=== PATIENT | female | born 1980 ===

== ENCOUNTER 2017-07-05 19:00 | Emergency (ER) | payer OTHER ==
[2017-07-05] MEDS ORDERED: ONDANSETRON HCL 4 MG/2 ML SOL IM ONE (19:37)
[2017-07-05] MEDS ORDERED: LORAZEPAM 2 MG/ML SOL IM ONE (19:37)
[2017-07-05] MEDS ORDERED: ONDANSETRON 4 MG ODT BU ONE (19:40)
[2017-07-05] MEDS ORDERED: ONDANSETRON 4 MG ODT ONE (19:41)
[2017-07-05] MEDS ORDERED: LORAZEPAM 2 MG/ML SOL ONE (19:42)
[2017-07-05 20:07] LABS: BASOPHILS % (AUTO) 1 % (0-3); EOSINOPHILS % (AUTO) 1 % (0-9); HEMATOCRIT 45 % (35-47); MEAN CORPUSCULAR HGB CONC 33.2 gm/dl (32.0-36.0); MEAN CORPUSCULAR VOLUME 82 fL (81-99); MONOCYTES % (AUTO) 9.7 % (0-12); NEUTROPHILS % (AUTO) 60.1 % (37-80)
[2017-07-05 20:23] LABS: ALBUMIN 3.8 gm/dl (3.4-5.0); POTASSIUM 3.4 mMol/L (3.5-5.1)
[2017-07-05] MEDS ORDERED: CLONIDINE 0.1 MG TAB PO ONE (20:46)
[2017-07-05] MEDS ORDERED: CLONIDINE 0.1 MG TAB ONE (20:50)
[2017-07-05 20:55] VITALS: RESP 20
[2017-07-05 21:13] VITALS: BP 145/100; PULSE 74; TEMP 98; O2SAT 100
== END 2017-07-05 21:10 | disposition home or self-care (01) ==
LOC: ED 19:00
DX: F11.23 Opioid dependence with withdrawal (principal); R11.2 Nausea with vomiting, unspecified
CPT/HCPCS: 36415; 80053; 84703; 85025; 99283; J2060; A9270-GY

== ENCOUNTER 2017-08-08 13:44 | Emergency (ER) | payer OTHER ==
[2017-08-08 14:05] VITALS: RESP 24; TEMP 96.5
[2017-08-08] MEDS ORDERED: CLONIDINE 0.1 MG TAB PO ONE (14:12)
[2017-08-08] MEDS ORDERED: PROMETHAZINE HYDROCHLORIDE 25 MG/ML SOL IM ONE (14:13)
[2017-08-08] MEDS ORDERED: PROMETHAZINE HYDROCHLORIDE 25 MG/ML SOL ONE (14:19)
[2017-08-08] MEDS ORDERED: CLONIDINE 0.1 MG TAB ONE (14:19)
[2017-08-08 14:51] VITALS: BP 109/89; PULSE 79; O2SAT 98
== END 2017-08-08 14:40 | disposition home or self-care (01) ==
LOC: ED 13:44
DX: F11.23 Opioid dependence with withdrawal (principal)
CPT/HCPCS: 99283; J2550; A9270-GY